=== PATIENT | female | born 1975 | race Caucasian/White ===

== ENCOUNTER 2019-02-13 09:57 | Emergency (ER) | payer MEDICARE, MEDICAID ==
[2019-02-13] MEDS ORDERED: IBUPROFEN 800 MG TABLET PO ONE (10:39)
--- NOTE | 2019-02-13 10:41 | ER Document Report ---
ED General - General Chief Complaint: Jaw Pain Stated Complaint: JAW PAIN Time Seen by Provider: 02/13/19 10:24 Primary Care Provider: GERTRUDE SCHMITZ MD [COMMUNITY BASED STAFF] - Follow up as needed Mode of Arrival: Ambulatory Information source: Patient - HPI Notes: 43-year-old female with a medical history of epilepsy and hypothyroidism presents to the ED for refill of her epilepsy medication as well as her thyroid medication as well as for complaints of right upper dental pain that started approximately 2 weeks ago. Patient recently moved from [place], she was unable to see a dentist there. Patient has not been able to see a dentist here, recently moved within the last week. Has not tried any [id number] medications. Denies fevers, chills, chest pain,palpitations, shortness of breath, dyspnea, nausea, vomiting, diarrhea, abdominal pain, hematuria,blurred vision, double vision, loss of vision, speech changes, LH, dizziness, syncope, headaches, wheezing, ST, URI, neck pain, weakness, bowel or bladder dysfunction, saddle anesthesia, numbness or tingling in bilateral upper or lower extremities equally, muscle paralysis, weakness in bilateral upper or lower extremities equally or rash. - Related Data Allergies/Adverse Reactions: Penicillins Adverse Reaction (Unknown, Verified 02/13/19 10:04) Hives Past Medical History - General Information source: Patient - Social History Smoking Status: Current Every Day Smoker Chew tobacco use (# tins/day): No Frequency of alcohol use: Occasional Drug Abuse: None Family History: Reviewed & Not Pertinent Patient has suicidal ideation: No Patient has homicidal ideation: No Review of Systems - Review of Systems Constitutional: No symptoms reported EENT: See HPI Cardiovascular: No symptoms reported Respiratory: No symptoms reported Gastrointestinal: No symptoms reported Genitourinary: No symptoms reported Female Genitourinary: No symptoms reported Musculoskeletal: No symptoms reported Skin: No symptoms reported Hematologic/Lymphatic: No symptoms reported Neurological/Psychological: No symptoms reported Physical Exam - Vital signs Vitals: Temp Pulse Resp BP Pulse Ox 97.9 F 55 L 16 148/75 H 100 02/13/19 10:03 02/13/19 10:03 02/13/19 10:03 02/13/19 10:03 02/13/19 10:03 - Notes Notes: PHYSICAL EXAMINATION: GENERAL: Well-appearing, well-nourished and in no acute distress. HEAD: Atraumatic, normocephalic. EYES: Pupils equal round and reactive to light, extraocular movements intact, conjunctiva are normal. ENT: Nares patent, oropharynx clear without exudates. Moist mucous membranes. #4 with gingiva with swelling, erythema and induration. No drainage or open wounds. No fluctuance. No facial swelling. Poor oral dentition, right upper jaw with extensive dental caries, no definite swelling or effusion. NECK: Normal range of motion, supple without lymphadenopathy LUNGS: Breath sounds clear to auscultation bilaterally and equal. No wheezes rales or rhonchi. HEART: Regular rate and rhythm without murmurs ABDOMEN: Soft, nontender, nondistended abdomen. No guarding, no rebound. No masses appreciated. Female : deferred Musculoskeletal: Normal range of motion, no pitting or edema. No cyanosis. NEUROLOGICAL: Cranial nerves grossly intact. Normal speech, normal gait. Normal sensory, motor exams PSYCH: Normal mood, normal affect. SKIN: Warm, Dry, normal turgor, no rashes or lesions noted. Course - Re-evaluation Re-evalutation: 02/13/19 11:35 CBC negative for leukocytosis or anemia, CMP negative for hepatic or renal dysfunction, TSH shows We will start patient on clindamycin course, patient given a month supply of her Trileptal as well as her levothyroxine. Names given for follow-up for dentist, primary care.Presentation is most consistent with likely an infected tooth. TSH 190, free T4 is 0.09, will start on levothyroxine. airway is patent. Vitals within normal limits. Patient is able swallow without any difficulty. There is no significant facial swelling. No evidence of Kwan angina, apical abscess, or airway obstruction. Patient will be started on antibiotics. I've instructed to follow-up with dentistry as earliest ability for definitive management. At this time will discharge with return precautions and follow-up recommendations. Verbal discharge instructions given a the bedside and opportunity for questions given. Medication warnings reviewed. Patient is in agreement with this plan and has verbalized understanding of return precautions and the need for primary care follow-up in the next 24-72 hours. - Vital Signs Vital signs: Temp Pulse Resp BP Pulse Ox 97.9 F 54 L 16 121/53 L 100 02/13/19 14:07 02/13/19 14:07 02/13/19 14:07 02/13/19 14:07 02/13/19 14:07 - Laboratory Result Diagrams: 02/13/19 10:50 02/13/19 10:50 Laboratory results interpreted by me: 02/13/19 02/13/19 02/13/19 10:50 10:50 10:50 RDW 15.6 H Est GFR (MDRD) Non-Af 58 L Glucose 70 L Alkaline Phosphatase 36 L TSH 190.00 H Free T4 02/13/19 10:50 RDW Est GFR (MDRD) Non-Af Glucose Alkaline Phosphatase TSH Free T4 0.09 L Discharge - Discharge Clinical Impression: Seizures, Dental caries Hypothyroidism Qualifiers: Hypothyroidism type: other Qualified Code(s): E03.8 - Other specified hypothyroidism Condition: Stable Disposition: HOME, SELF-CARE Instructions: [facility], Dentist, Hypothyroidism ([facility]), Seizure, Known Epileptic ([facility]) Additional Instructions: You have been seen for dental pain. It is very important that you follow-up with a dentist for definitive care. Please return if you develop fever greater than 101, swelling in your face, vomiting, difficulty breathing or swallowing, or any other symptoms that are concerning to you. For pain you should take ibuprofen 600 mg every 6 hours as needed. Return immediately for any new or worsening symptoms. Follow up with primary care provider, call tomorrow to make followup appointment. Prescriptions: Clindamycin HCl 300 mg PO Q6H #28 capsule Levothyroxine Sodium 175 mcg PO DAILY #30 tablet Oxcarbazepine [Trileptal 150 mg Tablet] 300 mg PO BID #60 tablet Referrals: GERTRUDE SCHMITZ MD [COMMUNITY BASED STAFF] - Follow up as needed
[2019-02-13 11:04] LABS: ABSOLUTE BASOPHILS # (AUTO) 0.1 10^3/uL (0.0-0.2); ABSOLUTE EOSINOPHILS # (AUTO) 0.1 10^3/uL (0.0-0.6); ABSOLUTE LYMPHOCYTES (AUTO) 2.1 10^3/uL (0.5-4.7); ABSOLUTE MONOCYTES (AUTO) 0.3 10^3/uL (0.1-1.4); ABSOLUTE NEUT (AUTO) 4.3 10^3/uL (1.7-8.2); BASOPHILS % (AUTO) 0.7 % (0-2); EOSINOPHILS % (AUTO) 1.6 % (0-6); HEMATOCRIT 41.3 % (36.0-47.0); HEMOGLOBIN 13.9 g/dL (12.0-15.5); LYMPHOCYTES % (AUTO) 30.9 % (13-45); MEAN CORPUSCULAR HEMOGLOBIN 31.7 pg (27.0-33.4); MEAN CORPUSCULAR HGB CONC 33.6 g/dL (32.0-36.0); MEAN CORPUSCULAR VOLUME 94 fl (80-97); MONOCYTES % (AUTO) 4.6 % (3-13); PLATELET COUNT 170 10^3/uL (150-450); RED BLOOD COUNT 4.38 10^6/uL (3.72-5.28); RED CELL DISTRIBUTION WIDTH 15.6 % (11.5-14.0); SEGMENTED NEUTROPHILS % (AUTO) 62.2 % (42-78); TOTAL CELLS COUNTED % (AUTO) 100 %; WHITE BLOOD COUNT 6.9 10^3/uL (4.0-10.5)
[2019-02-13 11:25] LABS: ALBUMIN 4.1 g/dL (3.5-5.0); ALKALINE PHOSPHATASE 36 U/L (38-126); ANION GAP 9 (5-19); ASPARTATE AMINO TRANSFERASE 33 U/L (14-36); BILIRUBIN,DIRECT 0.2 mg/dL (0.0-0.4); BILIRUBIN,TOTAL 0.3 mg/dL (0.2-1.3); BLOOD UREA NITROGEN 20 mg/dL (7-20); C-REACTIVE PROTEIN < 5.0 mg/L (<10.0); CALCIUM 9.2 mg/dL (8.4-10.2); CARBON DIOXIDE 24 mmol/L (22-30); CHLORIDE 105 mmol/L (98-107); GLUCOSE 70 mg/dL (75-110); POTASSIUM 4.2 mmol/L (3.6-5.0); TOTAL PROTEIN 6.9 g/dL (6.3-8.2)
[2019-02-13 14:09] VITALS: BP 121/53
== END 2019-02-13 14:08 | disposition home or self-care (01) ==
LOC: ER 09:57
DX: K02.9 Dental caries, unspecified (principal); K08.89 Other specified disorders of teeth and supporting structures; G40.909 Epilepsy, unspecified, not intractable, without status epilepticus; E03.9 Hypothyroidism, unspecified; F17.200 Nicotine dependence, unspecified, uncomplicated
CPT/HCPCS: 36415; 84439; 84443; 85025; 86140; 80053; A9270; 99283

== ENCOUNTER 2019-03-09 10:50 | Emergency (ER) | payer MEDICARE, MEDICAID ==
--- NOTE | 2019-03-09 11:36 | ER Document Report ---
ED General Pain - General Chief Complaint: Pain All Over Stated Complaint: BODY PAIN Time Seen by Provider: 03/09/19 11:15 Notes: 43-year-old female presents to the ER complaining of multiple pain related complaints. Patient stated she has thyroid disease and is nearly out of her thyroxine. The patient also feels that she may have a seizure. She would like refills on her thyroxine and Trileptal. The patient just recently moved from [place] and has not established physician yet. She complains of pain around her neck. States she usually starts feeling funny if her thyroid levels get out of whack. She is requesting refills on her thyroid medicine and her Trileptal. Denies extremity numbness tingling or weakness denies chest pain or shortness of breath the pain is mainly related around the neck. Denies any upper externally weakness numbness or tingling rates her pain is severe at times. TRAVEL OUTSIDE OF THE [place] IN LAST 30 DAYS: No - Related Data Allergies/Adverse Reactions: Penicillins Adverse Reaction (Unknown, Verified 03/09/19 11:31) Hives Past Medical History - Social History Smoking Status: Current Every Day Smoker Chew tobacco use (# tins/day): No Frequency of alcohol use: None Drug Abuse: None Family History: Reviewed & Not Pertinent Patient has suicidal ideation: No Patient has homicidal ideation: No Review of Systems - Review of Systems Constitutional: denies: Chills, Fever Genitourinary: denies: Dysuria, Hematuria Musculoskeletal: Neck pain Skin: denies: Rash Neurological/Psychological: Headaches -: Yes All other systems reviewed and negative Physical Exam - Vital signs Vitals: Temp Pulse Resp BP Pulse Ox 98.0 F 64 16 128/41 H 100 03/09/19 10:54 03/09/19 10:54 03/09/19 10:54 03/09/19 10:54 03/09/19 10:54 - Notes Notes: GENERAL_APPEARANCE: well_nourished, alert, cooperative, no_acute_distress, no_obvious_discomfort. VITALS: reviewed, see vital signs table. HEAD: no_swelling\tenderness on the head. EYES: PERRL, EOMI, conjunctiva_clear. NOSE: no_nasal_discharge. MOUTH: (-)decreased moisture. THROAT: no_tonsilar_inflammation, no_airway_obstruction. no_lymphadenopathy NECK: supple, views anterior and posterior tenderness no swelling redness heat is noted., (-)thyromegaly. BACK: no_back_tenderness. CHEST_WALL: no_chest_tenderness. LUNGS: no_wheezing, no_rales, no_rhonchi, (-)accessory muscle use, good air exchange bilateral. HEART: normal_rate, normal_rhythm, normal_S1, normal_S2, (-)S3, (-)S4, no_murmur, no_rub. ABDOMEN: soft, no_abd_tenderness, (-)guarding, (-)rebound, no_organomegaly, no_abd_masses. EXTREMITIES: good pulses in all_extremities, no_swelling\tenderness in the extremities, no_edema. SKIN: warm, dry, good_color, no_rash. MENTAL_STATUS: speech_clear, oriented_X_3, anxious_affect, responds_appropriately to questions. NEURO: Neg Motor or Sensory Deficits on exam, CN 2-12 intact, DTR 2+ symmetric x 4, No cerbellar signs Course - Re-evaluation Re-evalutation: 03/09/19 11:34 43-year-old female presents requesting neck pain and requesting thyroid medicine refills. The patient has had a long history of thyroid disease. She has recently moved from [place] and has not established primary care. Rechecking generalized thyroid levels I do not think she is in thyroid storm. She has normal vital signs. When I assess her neck I see no enlarged thyroid. No masses. No redness no heat signs of abscess however when I touch her neck she draws away and is seems to be very hyperesthetic. I did not not believe there is anything objective findings here. We will check her levels. And likely refill her thyroid medicines but I stressed the importance of following up with primary care. The patient is appropriate petechiae no meningismus. Patient also signed her daughter in for refill on her asthma medicines. 03/09/19 13:15 Thyroid screen is not too far off it was expected we will refill her medications. X-rays show degenerative changes no acute abnormalities. - Vital Signs Vital signs: Temp Pulse Resp BP Pulse Ox 98.0 F 64 16 128/41 H 100 03/09/19 10:54 03/09/19 10:54 03/09/19 10:54 03/09/19 10:54 03/09/19 10:54 - Laboratory Laboratory results interpreted by me: 03/09/19 11:30 TSH 0.35 L - Diagnostic Test Radiology reviewed: Reports reviewed Radiology results interpreted by me: 03/09/19 13:16 Cervical Spine X-Ray 03/09/19 11:22 IMPRESSION: SPONDYLOSIS WITHOUT BONE LESION OR FRACTURE. Discharge - Discharge Clinical Impression: Neck pain Hypothyroidism Qualifiers: Hypothyroidism type: other Qualified Code(s): E03.8 - Other specified hypothyroidism Condition: Good Disposition: HOME, SELF-CARE Instructions: Hypothyroidism ([facility]) Prescriptions: Levothyroxine Sodium [Synthroid] 175 mcg PO DAILY #30 tablet Oxcarbazepine [Trileptal] 2 tab PO BID #120 tablet
[2019-03-09 12:27] LABS: FREE T4 (FREE THYROXINE) 1.58 ng/dL (0.78-2.19)
[2019-03-09 12:41] LABS: THYROID STIMULATING HORMONE 0.35 uIU/mL (0.47-4.68)
--- NOTE | 2019-03-09 12:41 | RADIOLOGY REPORT (SQ) ---
EXAM DESCRIPTION: CERV SP 4 OR 5 VIEWS COMPLETED DATE/TIME: 03/09/2019 12:26 pm REASON FOR STUDY: neck pain COMPARISON: None. NUMBER OF VIEWS: Five views including obliques. TECHNIQUE: AP, lateral, obliques and odontoid radiographic images acquired of the cervical spine. LIMITATIONS: None. FINDINGS: MINERALIZATION: Normal. ALIGNMENT: Normal. VERTEBRAE: Maintained height. No fracture or worrisome bone lesion. DISCS: Multilevel disc space narrowing with osteophytes. POSTERIOR ELEMENTS: Pedicles and facets are intact. No posterior arch defects. Facet arthropathy is present. FORAMINA: Narrowed at the levels of maximal disc and facet disease. HARDWARE: None in the spine. PARASPINAL SOFT TISSUES: Normal. OTHER: No other significant finding. IMPRESSION: SPONDYLOSIS WITHOUT BONE LESION OR FRACTURE. TECHNICAL DOCUMENTATION: JOB ID: [id number] [employer]- All Rights Reserved Reading location - IP/workstation name: [email or web address]
[2019-03-09 13:58] VITALS: BP 116/51
== END 2019-03-09 13:59 | disposition home or self-care (01) ==
LOC: ER 10:50
DX: Z76.0 Encounter for issue of repeat prescription (principal); E03.8 Other specified hypothyroidism; M54.2 Cervicalgia; M79.10 Myalgia, unspecified site; R51 Headache; Z79.899 Other long term (current) drug therapy; F17.200 Nicotine dependence, unspecified, uncomplicated
CPT/HCPCS: 36415; 72050; 84439; 84443; 99283

== ENCOUNTER 2019-06-27 14:31 | Emergency (ER) | payer MEDICARE, MEDICAID ==
[2019-06-27 14:57] LABS: ABSOLUTE EOSINOPHILS # (AUTO) 0.2 10^3/uL (0.0-0.6); ABSOLUTE MONOCYTES (AUTO) 0.2 10^3/uL (0.1-1.4); BASOPHILS % (AUTO) 0.5 % (0-2); EOSINOPHILS % (AUTO) 6.6 % (0-6); HEMATOCRIT 40.1 % (36.0-47.0); HEMOGLOBIN 13.6 g/dL (12.0-15.5); LYMPHOCYTES % (AUTO) 29.6 % (13-45); MEAN CORPUSCULAR HEMOGLOBIN 31.9 pg (27.0-33.4); MEAN CORPUSCULAR HGB CONC 33.9 g/dL (32.0-36.0); MEAN CORPUSCULAR VOLUME 94 fl (80-97); MONOCYTES % (AUTO) 6.4 % (3-13); PLATELET COUNT 162 10^3/uL (150-450); RED BLOOD COUNT 4.27 10^6/uL (3.72-5.28); SEGMENTED NEUTROPHILS % (AUTO) 56.9 % (42-78); TOTAL CELLS COUNTED % (AUTO) 100 %; WHITE BLOOD COUNT 3.5 10^3/uL (4.0-10.5)
[2019-06-27 15:15] LABS: ALKALINE PHOSPHATASE 38 U/L (38-126); ANION GAP 11 (5-19); ASPARTATE AMINO TRANSFERASE 38 U/L (14-36); BILIRUBIN,TOTAL 0.4 mg/dL (0.2-1.3); BLOOD UREA NITROGEN 9 mg/dL (7-20); CALCIUM 9.2 mg/dL (8.4-10.2); CARBON DIOXIDE 23 mmol/L (22-30); CHLORIDE 105 mmol/L (98-107); GLUCOSE 83 mg/dL (75-110); POTASSIUM 4.5 mmol/L (3.6-5.0); TOTAL PROTEIN 6.9 g/dL (6.3-8.2)
[2019-06-27 15:23] LABS: ALCOHOL < 10 mg/dL (NONE DETECTED)
--- NOTE | 2019-06-27 17:10 | ER Document Report ---
ED General - General Chief Complaint: Seizure Stated Complaint: POSSIBLE SEIZURE Time Seen by Provider: 06/27/19 16:55 Primary Care Provider: CRAIG SANCHEZ PA-C [Primary Care Provider] - Follow up as needed Mode of Arrival: Medic Information source: Patient, Relative TRAVEL OUTSIDE OF THE [place] IN LAST 30 DAYS: No - HPI Onset: Just prior to arrival Onset/Duration: Sudden Quality of pain: No pain Severity: Moderate Pain Level: Denies Associated symptoms: Other - Seizure Activity Exacerbated by: Denies Relieved by: Denies Similar symptoms previously: Yes - patient has about 3 seizures a month Recently seen / treated by doctor: No Notes: 43 year old female with a history of Seizures (maintained on Trileptal), Hypothyroidism, Iron Deficiency Anemia brought in by EMS after a seizure. The patient apparently had a generalized tonic clonic seizure which lasted about 2 minutes. The patient was postical after the event. The patient says this seizure seemed the worse to her. The patient tells me she does not always take Trileptal as it is prescribed (600mg BID). - Related Data Allergies/Adverse Reactions: Penicillins Adverse Reaction (Unknown, Verified 03/09/19 11:31) Hives Past Medical History - General Information source: Patient - Social History Smoking Status: Current Every Day Smoker Frequency of alcohol use: Occasional Drug Abuse: None Lives with: Family Family History: Reviewed & Not Pertinent Patient has suicidal ideation: No Patient has homicidal ideation: No - Past Medical History Cardiac Medical History: Reports: None Pulmonary Medical History: Reports: None EENT Medical History: Reports: None Neurological Medical History: Reports: Hx Seizures Endocrine Medical History: Reports: None Renal/ Medical History: Reports: None Malignancy Medical History: Reports: None GI Medical History: Reports: None Musculoskeletal Medical History: Reports None Skin Medical History: Reports None Psychiatric Medical History: Reports: None Past Surgical History: Reports: Hx Hysterectomy Review of Systems - Review of Systems Constitutional: No symptoms reported EENT: No symptoms reported Cardiovascular: No symptoms reported Respiratory: No symptoms reported Gastrointestinal: No symptoms reported Genitourinary: No symptoms reported Female Genitourinary: No symptoms reported Musculoskeletal: No symptoms reported Skin: No symptoms reported Hematologic/Lymphatic: No symptoms reported Neurological/Psychological: Seizure -: Yes All other systems reviewed and negative Physical Exam - Notes Notes: GENERAL: Well-appearing, well-nourished and in no acute distress. HEAD: Atraumatic, normocephalic. EYES: Pupils equal round and reactive to light, extraocular movements intact, sclera anicteric, conjunctiva are normal. ENT: TMs normal, nares patent, oropharynx clear without exudates. Moist mucous membranes. NECK: Normal range of motion, supple without lymphadenopathy or JVD. LUNGS: Breath sounds clear to auscultation bilaterally and equal. No wheezes rales or rhonchi. HEART: Regular rate and rhythm without murmurs, rubs or gallops. ABDOMEN: Soft, nontender, normoactive bowel sounds. No guarding, no rebound. No masses appreciated. EXTREMITIES: Normal range of motion, no pitting or edema. No clubbing or cyanosis. NEUROLOGICAL: Cranial nerves II through XII grossly intact. Normal speech, normal gait. PSYCH: Normal mood, normal affect. SKIN: Warm, Dry, normal turgor, no rashes or lesions noted. Course - Re-evaluation Re-evalutation: 06/27/19 17:13 The patient sounds like she has a seizure and it also sounds like she is not compliant with her Trileptal. Patient just moved to area so will refer her to a PCP and Neurology. Patient is having urinary frequency. 06/27/19 18:07 UA looks infectious. A UTI could lower her seizure threshold along with not taking her Trileptal as prescribed. Will DC on a course of Bactrim for a UTI and with a refill of her Trileptal. - Laboratory Result Diagrams: 06/27/19 14:42 06/27/19 14:42 Laboratory results interpreted by me: 06/27/19 06/27/19 06/27/19 14:42 14:42 16:50 WBC 3.5 L Eos % (Auto) 6.6 H AST 38 H Urine Protein 30 H Urine Urobilinogen 2.0 H Ur Leukocyte Esterase SMALL H Discharge - Discharge Clinical Impression: Seizure UTI (urinary tract infection) Qualifiers: Urinary tract infection type: acute cystitis Hematuria presence: without hematuria Qualified Code(s): N30.00 - Acute cystitis without hematuria Condition: Stable Disposition: HOME, SELF-CARE Instructions: Urinary Tract Infection, Child ([facility]), Seizure, Known Epileptic ([facility]) Additional Instructions: Follow up with a primary care doctor and with a Neurologist (some are listed). Take Trileptal 600mg twice a day. Take Bactrim as prescribed for a UTI. Prescriptions: Sulfamethoxazole/Trimethoprim [Bactrim Ds Tablet] 1 tab PO BID #10 tablet Oxcarbazepine [Trileptal] 600 mg PO BID 30 Days #240 tablet Referrals: CRAIG SANCHEZ PA-C [Primary Care Provider] - Follow up as needed MAGNUS BUI MD [NO LOCAL MD] - Follow up as needed MARGARET MAK MD [ACTIVE STAFF] - Follow up as needed
[2019-06-27] MEDS ORDERED: OXCARBAZEPINE 150 MG TABLET PO ONE (17:26)
[2019-06-27 17:35] LABS: APPEARANCE,URINE SLIGHTLY-CLOUDY; BILIRUBIN,URINE NEGATIVE (NEGATIVE); COLOR,URINE YELLOW; GLUCOSE, URINE NEGATIVE (NEGATIVE); KETONES,URINE NEGATIVE (NEGATIVE); LEUKOCYTE ESTERASE,URINE SMALL (NEGATIVE); NITRITE,URINE NEGATIVE (NEGATIVE); PROTEIN,URINE 30 mg/dL (NEGATIVE); URINE SPECIFIC GRAVITY 1.016
[2019-06-27 17:40] LABS: URINE AMPHETAMINES SCREEN NEGATIVE; URINE BARBITURATES SCREEN NEGATIVE; URINE BENZODIAZEPINES SCREEN NEGATIVE; URINE MARIJUANA (THC) SCREEN NEGATIVE; URINE METHADONE SCREEN NEGATIVE; URINE PHENCYCLIDINE SCREEN NEGATIVE
[2019-06-27 17:42] LABS: URINE COCAINE SCREEN UNCONFIRMED POSITIVE
[2019-06-27 18:31] VITALS: BP 109/61
== END 2019-06-27 18:30 | disposition home or self-care (01) ==
LOC: ER 14:31
DX: R56.9 Unspecified convulsions (principal); N30.00 Acute cystitis without hematuria; E03.9 Hypothyroidism, unspecified; D50.9 Iron deficiency anemia, unspecified; F17.200 Nicotine dependence, unspecified, uncomplicated; Z90.710 Acquired absence of both cervix and uterus; Z88.0 Allergy status to penicillin
CPT/HCPCS: 80183; 36415; 87086; 80307 ×2; 83735; 84703; 85025; 80053; 81001; A9270; 87088; 99284

== ENCOUNTER 2019-11-13 02:00 | Emergency (ER) | payer MEDICARE, MEDICAID ==
[2019-11-13] MEDS ORDERED: DIPH/PERTUSS(ACELL)/TETANUS VAC/PF 0.5 ML SYR (>=10YO) IM ONE (02:25)
[2019-11-13] MEDS ORDERED: OXCARBAZEPINE 150 MG TABLET PO ONE (02:38)
--- NOTE | 2019-11-13 02:39 | ER Document Report ---
Entered by SHARMILA OCHOA SCRIBE 11/13/19 0222 Acting as scribe for:JANET MARINO IV, MD ED Seizure - General Stated Complaint: FALL,SEIZURE Time Seen by Provider: 11/13/19 02:08 Primary Care Provider: CRAIG SANCHEZ PA-C [Primary Care Provider] - Follow up as needed Mode of Arrival: Medic Information source: Patient Notes: This 44 year old female patient with a history of seizures brought in by EMS from home presents to the ED today with complaints of seizure that occurred just prior to arrival. Patient states that she had a seizure and then fell off of her bed onto concrete. She reports pain to head, mid-lower back, and left hand. She also notes abrasions over her left eyebrow and left knuckles. She states that she takes Trileptal for her seizures, but she is unsure of whether or not she has missed a dose. She is also unsure of when her last tetanus booster occurred. - Related Data Allergies/Adverse Reactions: Penicillins Adverse Reaction (Unknown, Verified 03/09/19 11:31) Hives Past Medical History - General Information source: Patient - Social History Smoking Status: Unknown if Ever Smoked Cigarette use (# per day): No Chew tobacco use (# tins/day): No Smoking Education Provided: No Lives with: Family Family History: Reviewed & Not Pertinent Patient has suicidal ideation: No Patient has homicidal ideation: No Neurological Medical History: Reports: Hx Seizures Past Surgical History: Reports: Hx Hysterectomy Review of Systems - Review of Systems Constitutional: No symptoms reported EENT: No symptoms reported Cardiovascular: No symptoms reported Respiratory: No symptoms reported Gastrointestinal: No symptoms reported Genitourinary: No symptoms reported Female Genitourinary: No symptoms reported Musculoskeletal: See HPI, Back pain, Other - Left hand and head pain Skin: See HPI, Other - Abrasion Hematologic/Lymphatic: No symptoms reported Neurological/Psychological: See HPI, Seizure -: Yes All other systems reviewed and negative Physical Exam - Vital signs Vitals: Resp Pulse Ox 19 98 11/13/19 02:17 11/13/19 02:17 - General General appearance: Alert, Other - C-spine immobilized by rigid C-collar In distress: None - HEENT Head: Normocephalic, Abrasions Eyes: Normal Pupils: PERRL - Respiratory Respiratory status: No respiratory distress Chest status: Nontender Breath sounds: Normal Chest palpation: Normal - Cardiovascular Rhythm: Regular Heart sounds: Normal auscultation Murmur: No Friction rub: No Gallop: None auscultated Normal capillary refill: Yes - < 2 seconds in digits of left hand - Abdominal Inspection: Normal Distension: No distension Bowel sounds: Normal Tenderness: Nontender - Abdomen soft Organomegaly: No organomegaly - Extremities General lower extremity: Normal inspection Hand: Tender - Tenderness to palpation of 3rd-5th knuckles on left side., Abrasion, Other - ROM intact. No crepitus appreciated. - Neurological Neuro grossly intact: Yes Orientation: AAOx4 - Psychological Associated symptoms: Normal affect, Normal mood - Skin Skin irregularity: other - 0.25 cm abrasion over left eyebrow. 5x3x2 cm area of soft tissue swelling noted to left forehead. Abrasion to 3rd-5th knuckles on the left side Course - Re-evaluation Re-evalutation: 11/13/19 04:50 Results of ED MSE discussed with patient. Review of prior medical visits reveals that there is some question as to whether or not the patient is compliant with her Trileptal. This MD discussed the importance of remaining compliant with seizure medications. All questions were answered prior to disch arge. Emergency signs and symptoms, reasons to return to the emergency department discussed with patient. - Vital Signs Vital signs: Temp Pulse Resp BP Pulse Ox 19 123/69 98 11/13/19 02:18 11/13/19 02:18 11/13/19 02:18 - Laboratory Result Diagrams: 11/13/19 02:42 11/13/19 02:42 Laboratory results interpreted by me: 11/13/19 11/13/19 02:42 02:42 WBC 10.7 H RDW 14.8 H Absolute Neuts (auto) 8.4 H Seg Neutrophils % 78.9 H Sodium 136.5 L Chloride 108 H Anion Gap 4 L Alkaline Phosphatase 35 L Total Protein 6.2 L - Diagnostic Test Radiology reviewed: Reports reviewed Discharge - Discharge Clinical Impression: Seizure disorder Contusion of face Qualifiers: Encounter type: initial encounter Qualified Code(s): S00.83XA - Contusion of other part of head, initial encounter Facial abrasion Qualifiers: Encounter type: initial encounter Qualified Code(s): S00.81XA - Abrasion of other part of head, initial encounter Contusion of left hand Qualifiers: Encounter type: initial encounter Qualified Code(s): S60.222A - Contusion of left hand, initial encounter Accidental fall Qualifiers: Encounter type: initial encounter Qualified Code(s): W19.XXXA - Unspecified fall, initial encounter Condition: Good Disposition: HOME, SELF-CARE Additional Instructions: Return to the Emergency Department without delay if any worse. HOME CARE INSTRUCTIONS & INFORMATION: Thank you for choosing us for your medical needs. We hope you're satisfied with the care you received. After you leave, you must properly care for your problem and, at the same time, observe its progress. Any condition can change. Some illnesses can change rapidly over hours or days. If your condition worsens, return to the Emergency Department or see your physician promptly. ABOUT YOUR X-RAYS AND EKG'S: If you had an EKG or X-rays taken, they have been read by the Emergency Physician. The X-rays and EKG's will also be read by a Radiologist or Records Management Analyst within 24 hours. If discrepancies are noted, you will be notified by telephone. Please be certain the ED has a correct telephone number & address where you can be reached. Also, realize that some fractures or abnormalities do not show up on initial X-rays. If your symptoms continue, see your physician. ABOUT YOUR LABORATORY TEST: If you had laboratory tests, the results have been reviewed by the Emergency Physician. Some test results (for example cultures) may not be available for several days. You will be contacted if any test result shows you need additional treatment. Please be certain the ED has a correct telephone number and address where you can be reached. ABOUT YOUR MEDICATIONS: You will receive instructions on how to take your medicine on the prescription label you receive. Additional information may be provided by the Pharmacy. If you have questions afterwards, call the ED for clarification or further instructions. Some prescribed medications may cause drowsiness. Do not perform tasks such as driving a car or operating machinery without consulting your Pharmacist. If you feel you need a refill of pain medication, your condition will need re-evaluation. Please do not call for a refill of any medication. ABOUT YOUR SIGNATURE: Signature of this document acknowledges to followin. Understanding that you received emergency treatment and that you may be released before al medical problems are known or treated. Please be certain the ED has a correct phone number & address where you can be reached. 2. Acknowledgement that you will arrange for follow-up care as recommended. 3. Authorization for the Emergency Physician to provide information to your follow-up Physician in order to maximize your care. AT ANY TIME, IF YOUR SYMPTOMS CHANGE SIGNIFICANTLY OR WORSEN OR YOU DEVELOP NEW SYMPTOMS, RETURN TO THE EMERGENCY DEPARTMENT IMMEDIATELY FOR RE-EVALUATION. OUR GOAL IS TO PROVIDE EXCELLENT MEDICAL CARE! WE HOPE THAT WE HAVE MET YOUR EXPECTATIONS DURING YOUR EMERGENCY DEPARTMENT VISIT AND THAT YOU FEEL YOU HAVE RECEIVED EXCELLENT CARE! Abrasions An abrasion is a scraping injury of the skin. Some scarring may result. The seriousness of an abrasion is not always obvious at first. Hidden tissue damage may be present and infection may occur despite proper care. Complete healing may take from ten days to as long as a month. The healing time depends on the depth of the abrasion, and on the amount of crushing of underlying tissues from the injury. Keep the wound and dressing clean. Do not shower or bathe the area until o kayed by the doctor. If the dressing gets wet, remove it and blot the wound dry, then reapply a clean dressing. Dressings should be changed every day. Sunscreen should be used for six months after the skin is healed. If any signs of infection occur (swelling, redness, increasing tenderness, red streaks, profuse purulent drainage from the abrasion, tender lumps in the armpit or groin above the abrasion, or fever), see the doctor immediately. Contusion Your injury has resulted in a contusion -- a crushing of the deep tissues. No injury to important structures was detected during the physician's exam. Contusions vary in the amount of pain they cause, and in the length of time required for healing. Typically, the area will become bruised, and will remain painful to touch for two or three weeks. However, most patients are back to working and playing within a few days. After the initial period of rest and cold-packs, your symptoms (together with the doctor's recommendations) will determine how rapidly you can get back to full activity. Usually this means "do what feels okay, but don't do things that hurt." If re-examination was recommended, it's important to follow up as instructed. Call the doctor or return any time if pain increases, if swelling becomes severe, if you develop numbness or weakness in an injured extremity, or if any other alarming symptoms occur. Referrals: CRAIG SANCHEZ PA-C [Primary Care Provider] - Follow up as needed I personally performed the services described in the documentation, reviewed and edited the documentation which was dictated to the scribe in my presence, and it accurately records my words and actions.
--- NOTE | 2019-11-13 03:26 | RADIOLOGY REPORT (SQ) ---
INDICATION: SEIZURE, HEAD TRAUMA. COMPARISON: None CORRELATION: None TECHNIQUE: Noncontrast spiral axial CT images were obtained from the skull base to vertex. Noncontrast spiral axial CT imaging through the cervical spine with multiplanar reconstructions. This exam was performed according to our departmental dose-optimization program, which includes automated exposure control, adjustment of the mA and/or kV according to patient size and/or use of iterative reconstruction techniques. FINDINGS: BRAIN: There is no evidence of acute intracranial hemorrhage, midline shift, mass effect or mass lesion. Sparrow-white differentiation is normal. There is no evidence of acute large territory infarct. Ventricles and extracerebral spaces are within normal limits, for age. Superficial soft tissue injury to the galea left frontal The visualized paranasal sinuses are grossly clear. The orbits and eyeballs are unremarkable. The mastoid air cells are clear. Skull base and calvarium appear intact. CERVICAL SPINE: No acute displaced fracture is identified of the cervical spine. Alignment is anatomic. No focal alignment abnormality is identified. 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 Surrounding soft tissues of the neck are unremarkable. IMPRESSION: No acute intracranial process is identified. No acute bony injury is seen to the cervical spine. The cause of the patient's seizure is not identified on this examination.
--- NOTE | 2019-11-13 03:31 | RADIOLOGY REPORT (SQ) ---
EXAM DESCRIPTION: XR HAND 3 OR MORE VIEWS COMPLETED DATE/TME: 11/13/2019 02:31 CLINICAL HISTORY: 44 years, Female, FALL AFTER SEIZURE COMPARISON: None. NUMBER OF VIEWS: Three TECHNIQUE: Three views of the left hand LIMITATIONS: None. FINDINGS: There is no acute fracture or dislocation. No radiopaque foreign body. No large soft tissue swelling. IMPRESSION: No acute fracture or dislocation copyright 2011 [employer]- All Rights Reserved
[2019-11-13 03:44] LABS: ABSOLUTE EOSINOPHILS # (AUTO) 0.1 10^3/uL (0.0-0.6); ABSOLUTE LYMPHOCYTES (AUTO) 1.6 10^3/uL (0.5-4.7); ABSOLUTE MONOCYTES (AUTO) 0.5 10^3/uL (0.1-1.4); ABSOLUTE NEUT (AUTO) 8.4 10^3/uL (1.7-8.2); BASOPHILS % (AUTO) 0.4 % (0-2); EOSINOPHILS % (AUTO) 0.8 % (0-6); HEMATOCRIT 36.6 % (36.0-47.0); HEMOGLOBIN 12.5 g/dL (12.0-15.5); LYMPHOCYTES % (AUTO) 14.9 % (13-45); MEAN CORPUSCULAR HEMOGLOBIN 32.3 pg (27.0-33.4); MEAN CORPUSCULAR HGB CONC 34.2 g/dL (32.0-36.0); MEAN CORPUSCULAR VOLUME 94 fl (80-97); PLATELET COUNT 189 10^3/uL (150-450); RED BLOOD COUNT 3.89 10^6/uL (3.72-5.28); RED CELL DISTRIBUTION WIDTH 14.8 % (11.5-14.0); SEGMENTED NEUTROPHILS % (AUTO) 78.9 % (42-78); TOTAL CELLS COUNTED % (AUTO) 100 %; WHITE BLOOD COUNT 10.7 10^3/uL (4.0-10.5)
[2019-11-13 03:51] LABS: ALBUMIN 3.5 g/dL (3.5-5.0); ALKALINE PHOSPHATASE 35 U/L (38-126); ASPARTATE AMINO TRANSFERASE 20 U/L (14-36); BILIRUBIN,TOTAL 0.5 mg/dL (0.2-1.3); BLOOD UREA NITROGEN 13 mg/dL (7-20); CALCIUM 8.7 mg/dL (8.4-10.2); CARBON DIOXIDE 25 mmol/L (22-30); CHLORIDE 108 mmol/L (98-107); GLUCOSE 107 mg/dL (75-110); POTASSIUM 3.6 mmol/L (3.6-5.0); TOTAL PROTEIN 6.2 g/dL (6.3-8.2)
[2019-11-13 03:52] LABS: ALCOHOL < 10 mg/dL (NONE DETECTED)
[2019-11-13 03:57] LABS: ANION GAP 4 (5-19)
[2019-11-13 06:59] VITALS: BP 111/67
== END 2019-11-13 09:23 | disposition home or self-care (01) ==
LOC: ER 02:00
DX: R56.9 Unspecified convulsions (principal); S60.222A Contusion of left hand, initial encounter; S00.83XA Contusion of other part of head, initial encounter; S00.212A Abrasion of left eyelid and periocular area, initial encounter; S60.512A Abrasion of left hand, initial encounter; R51 Headache; M54.5 Low back pain; M79.642 Pain in left hand; M54.9 Dorsalgia, unspecified; W06.XXXA Fall from bed, initial encounter; Z79.899 Other long term (current) drug therapy; Z23 Encounter for immunization
CPT/HCPCS: 99284; 90471; 36415; 80307; 85025; 80053; 73130; 70450; 72125; 90715; A9270